=== PATIENT | male | born 1975 | race Caucasian/White ===

== ENCOUNTER 2017-03-14 16:48 | Emergency (ER) | payer OTHER ==
[2017-03-14 18:24] VITALS: BP 127/77
== END 2017-03-14 18:24 | disposition home or self-care (01) ==
LOC: ED 16:48
DX: S61.012A Laceration without foreign body of left thumb without damage to nail, initial encounter (principal); W26.0XXA Contact with knife, initial encounter; Y93.89 Activity, other specified; Y92.89 Other specified places as the place of occurrence of the external cause; Y99.8 Other external cause status
CPT/HCPCS: 90715; J2001

== ENCOUNTER 2017-07-04 21:01 | Emergency (ER) | payer OTHER ==
[~2017-07-04] VITALS: Ht 182.9 cm; Wt 73.0 kg
[2017-07-05 01:11] VITALS: BP 131/82
== END 2017-07-05 01:11 | disposition home or self-care (01) ==
LOC: ED 21:01
DX: J06.9 Acute upper respiratory infection, unspecified (principal)
CPT/HCPCS: J7613; J7644

== ENCOUNTER 2017-08-18 21:12 | Inpatient (IN) | payer OTHER ==
[~2017-08-18] VITALS: Ht 182.9 cm; Wt 69.9 kg
[2017-08-18 21:17] VITALS: Ht 182.9 cm; Wt 69.9 kg
[2017-08-19] VITALS (7 sets, daily range): BP systolic 106–120; BP diastolic 56–80
[2017-08-19 01:20] LABS: BASOPHIL % 0.3 % (0-2); PLATELET COUNT 223 x10^3mcL (130-400)
[2017-08-19 01:22] LABS: RED CELL DISTRIBUTION WIDTH 14.6 % (11.5-14.5)
[2017-08-19 01:35] LABS: CALCIUM 9.5 mg/dL (8.5-10.1); CARBON DIOXIDE 25.1 mmol/L (21-32); CHLORIDE SERUM 102 mmol/L (98-107); CREATININE SERUM 0.8 mg/dL (0.7-1.3); GFR1 > 60 mL/min; GLUCOSE SERUM 109 mg/dL (74-106); POTASSIUM SERUM 4.1 mmol/L (3.5-5.1); SODIUM SERUM 138 mmol/L (136-145)
[2017-08-19 01:40] LABS: ALBUMIN 3.9 g/dL (3.4-5.0); ALKALINE PHOSPHATASE 63 U/L (46-116); ALT/SGPT 10 U/L (16-63); AST/SGOT 12 U/L (15-37); BILIRUBIN TOTAL 0.58 mg/dL (0.20-1.00); TOTAL PROTEIN, SERUM 7.6 g/dL (6.4-8.2)
[2017-08-19] MEDS ORDERED: PROAIR HFA8.5 GM (02:23)
[2017-08-19 03:43] LABS: microscopic required? NO
[2017-08-19 04:07] LABS: urine erythrocyte NEGATIVE (NEGATIVE)
[2017-08-19 04:29] LABS: T3 TOTAL 1.4 ng/mL
[2017-08-19 05:02] LABS: FREE T4 1.23 ng/dL (0.76-1.46); FREE THYROXINE INDEX 2.7 ug/dL (1.4-4.5)
[2017-08-19 06:02] LABS: MAGNESIUM 2.3 mg/dL (1.8-2.4); PHOSPHOROUS 4.2 mg/dL (2.5-4.9)
[2017-08-19 06:04] LABS: CHOLESTEROL/HDL RATIO 2.4
[2017-08-19 07:56] LABS: AMPHETAMINE QUAL UR POSITIVE (NEG <=1000)
[2017-08-20 05:08] VITALS: BP 105/68
[2017-08-20 06:04] LABS: PLATELET COUNT 257 x10^3mcL (130-400)
[2017-08-20 06:25] LABS: CALCIUM 9.3 mg/dL (8.5-10.1); CARBON DIOXIDE 25.4 mmol/L (21-32); CHLORIDE SERUM 105 mmol/L (98-107); CREATININE SERUM 0.9 mg/dL (0.7-1.3); GFR1 > 60 mL/min; GLUCOSE SERUM 143 mg/dL (74-106); MAGNESIUM 2.1 mg/dL (1.8-2.4); PHOSPHOROUS 3.6 mg/dL (2.5-4.9); POTASSIUM SERUM 3.9 mmol/L (3.5-5.1); SODIUM SERUM 141 mmol/L (136-145)
[2017-08-20 06:44] LABS: BASOPHIL % 0 % (0-2); RED CELL DISTRIBUTION WIDTH 14.7 % (11.5-14.5)
[2017-08-20 09:09] VITALS: BP 123/64
[2017-08-20 09:32] VITALS: BP 123/64
[2017-08-20] MEDS ORDERED: MEDDP PO (12:06)
[2017-08-20] MEDS ORDERED: PULMICORT90 MCG/Ac1 IH (12:08)
== END 2017-08-20 14:00 | disposition home or self-care (01) | DRG 137 ==
LOC: ED 21:12 → DU 08-19 02:21
PROVIDERS: Emergency Medicine; Family Medicine
DX: J69.0 Pneumonitis due to inhalation of food and vomit (principal); J96.01 Acute respiratory failure with hypoxia; J44.1 Chronic obstructive pulmonary disease with (acute) exacerbation; E86.0 Dehydration; Z88.0 Allergy status to penicillin; Z87.891 Personal history of nicotine dependence; J06.9 Acute upper respiratory infection, unspecified
CPT/HCPCS: 83880; 84439; 87804; 94150; J1956; J2920; J2930; J7030; J7620